=== PATIENT | female | born 1960 | race Caucasian/White ===

== ENCOUNTER → 2017-06-24 | Outpatient (CLI) | payer OTHER ==
[2016-05-02 12:05] VITALS: BP 183/84
[~2017-06-24] MED LIST: FLUO20CA16 PO; INSU100C SQ; INSU100I13 SQ; LEVO50TA5 PO; LIPITOR80 MG PO; LOSARTAN POTASSIUM PO; OXYC-328 PO
--- NOTE | 2017-06-24 16:10 | RAD ---
Left lower extremity venous ultrasound, 06/24/2017 : History: Left leg swelling Duplex evaluation including grayscale, color flow and spectral Doppler analysis was performed. The femoral and popliteal veins show no filling defects to suggest DVT. The visualized calf veins are unremarkable. A mildly prominent lymph node is noted in the left upper thigh. IMPRESSION: There is no sonographic evidence of deep vein thrombosis in the left lower extremity
== END | disposition home or self-care (01) ==
LOC: US 15:05
PROVIDERS: ATTEND Family Medicine
DX: M79.89 Other specified soft tissue disorders (principal)
CPT/HCPCS: 93971

== ENCOUNTER 2020-10-18 15:14 | Emergency (ER) | payer OTHER ==
[~2020-10-18] VITALS: Ht 160 cm; Wt 76.0 kg
[~2020-10-18 15:14] MED LIST changes: -OXYC-328 PO; +OXYC1TAB22 PO
--- NOTE | 2020-10-18 15:46 | EKG ---
[address] [address] Test Date: 2020-10-18 Test Time: 15:38:34 Pat Name: ASH GOMEZ Department: Room: Gender: F Litigation Counsel: DEON : 1960 Requested By: ALEXYS SHETTY Order Number: [id number] Reading MD: Measurements Intervals [place] Rate: 74 P: 0 [place]: 150 QRS: -14 QRSD: 94 T: 114 QT: 400 QTc: 444 Interpretive Statements SINUS RHYTHM LEFTWARD AXIS QRS(T) CONTOUR ABNORMALITY CONSIDER ANTEROSEPTAL MYOCARDIAL DAMAGE CONSISTENT WITH INFERIOR INFARCT PROBABLY OLD ST & T ABNORMALITY, CONSIDER HIGH LATERAL ISCHEMIA OR LEFT VENTRICULAR STRAIN ABNORMAL ECG RI6.02 No previous ECG available for comparison
--- NOTE | 2020-10-18 16:38 | PHYS DOC ---
Past History Past Medical History: CVA, Hypertension, Hypothyroid, Renal Failure, Stroke Past Surgical History: Appendectomy, Cholecystectomy, Hysterectomy Additional Past Surgical Histo: bilateral carpal tunnel release surgery, 7 D&C, toe amputation Smoking: Non-smoker Alcohol Use: None Drug Use: None General Adult EDM: Chief Complaint: HYPERKALEMIA HPI: HPI: Patient is a 60 year old female with a PMH of DM, CAD, CKD, HTN, and HLD who presents from her ophthalmic medical technician's office after being told she had a very high K and high creatinine. She states back in June she was dx with end stage renal dz by her PCP and was supposed to start dialysis. She was supposed to start dialysis at that time, but was not able to get it set up "because of the holidays". She has also not been able to afford her insulin for an extended period of time, so has not been taking any. Today she has no symptoms/complaints. She says recently she has had muscle aches and cramping that are particularly bad in her bilateral LE at night. She denies any SOB, chest pain/palpitations, headaches, or weakness/fatigue. She has no other complaints at this time. Review of Systems: Review of Systems: Constitutional: Denies fever or chills Eyes: Denies redness or eye pain HENT: Denies nasal congestion or sore throat Respiratory: Denies cough or shortness of breath Cardiovascular: Denies chest pain or palpitations GI: Denies abdominal pain, nausea, or vomiting : Denies dysuria or hematuria Musculoskeletal: Denies back pain or joint pain. States she has had ongoing muscle/leg cramps that have been increasing lately. Integument: Denies rash or skin lesions Neurologic: Denies headache, focal weakness or sensory changes Complete systems were reviewed and found to be within normal limits, except as documented in this note. Allergies: Allergies: Allergies Coded Allergies Type Severity Reaction Last Updated Verified propoxyphene Allergy Severe Hives 05/01/16 Yes I S O L A T I O N *CONTACT* Allergy Unknown 05/16/16 Yes Physical Exam: PE: Constitutional: Well developed, well nourished, no acute distress, non-toxic appearance HENT: Normocephalic, atraumatic Eyes: PERRL, EOMI, conjunctiva normal, no discharge Neck: Normal range of motion, no tenderness, supple Lungs & Thorax: No respiratory distress, equal chest rise and fall Heart: RRR no m/r/g Abdomen: Soft, no tenderness Skin: Warm, dry, no erythema, no rash Back: No tenderness, no CVA tenderness Extremities: No tenderness, ROM intact, no edema Neurologic: Alert and oriented X 3, normal motor function, normal sensory function, no focal deficits noted Psychologic: Affect normal, judgment normal EKG: EKG: Normal sinus rhythm at 74 bpm, no acute ST elevation, QRS 94, QT/QTc 400/444. There are some mild old ischemic changes that are consistent with her cardiac hx. [] Radiology/Procedures: Radiology/Procedures: [] Course & Med Decision Making: Course & Med Decision Making Pertinent Labs and Imaging studies reviewed. (See chart for details) Martine Pickett is a 60 female who was sent here by her ophthalmic medical technician for hyperkalemia and increased creatinine due to ESRD. On arrival she is asymptomatic, her EKG did not show any acute ST elevation or signs of hyperkalemia. Her labs revealed a K+ of 6.1, so was treated with insulin, dextrose, and calcium gluconate. Patient requiring transfer for admission for further evaluation and treatment to facility with nephrology consultation. Discussed with Dr. Garcia (hospitalist) who is in agreement with transfer for admission to [facility]. Discussed findings and plan with patient, who acknowledges understanding and agreement. Patient reported some chronic back pain for which she received fentanyl. Dragon Disclaimer: Dragon Disclaimer: This electronic medical record was generated, in whole or in part, using a voice recognition dictation system. Departure Departure: Impression: Primary Impression: Hyperkalemia Disposition: 05 DC/TRF OTHER TYPE INSTITUTI ([facility]- Dr. Garcia accepting.) Condition: GUARDED Referrals: TANJA MAXWELL MD (PCP) Critical Care Time Critical care time was 30 minutes which includes time at bedside, spent in discussion of patient's care with specialists and/or family members, with interpretation of laboratory and/or radiological studies and is exclusive of procedures. ALEXYS SHETTY DO Oct 18, 2020 16:38
[2020-10-18 16:43] LABS: BASO # 0.1 x10^3/uL (0.0-0.2); BASO % 1 % (0-3); EOS # 0.2 x10^3/uL (0.0-0.7); EOS % 2 % (0-3); HEMATOCRIT 34.8 % (36.0-47.0); HEMOGLOBIN 11.3 g/dL (12.0-15.5); LYMPH # 2.1 x10^3/uL (1.0-4.8); LYMPH % 30 % (24-48); MEAN CORPUSCULAR HEMOGLOBIN 28 pg (25-35); MEAN CORPUSCULAR HGB CONC 32 g/dL (31-37); MEAN CORPUSCULAR VOLUME 86 fL (79-100); MONO # 0.3 x10^3/uL (0.0-1.1); MONO % 4 % (0-9); NEUT # 4.5 x10^3uL (1.8-7.7); NEUT % 63 % (31-73); PLATELET COUNT 173 x10^3/uL (140-400); RED BLOOD COUNT 4.07 x10^6/uL (3.50-5.40); RED CELL DISTRIBUTION WIDTH 14.7 % (11.5-14.5); WHITE BLOOD COUNT 7.1 x10^3/uL (4.0-11.0)
[2020-10-18 16:54] LABS: ALBUMIN 2.7 g/dL (3.4-5.0); ALBUMIN/GLOBULIN RATIO 0.5 (1.0-1.7); CALCIUM 8.4 mg/dL (8.5-10.1); CREATININE 3.6 mg/dL (0.6-1.0); GFR 12.9; MAGNESIUM 1.9 mg/dL (1.8-2.4); TOTAL BILIRUBIN 0.4 mg/dL (0.2-1.0); TOTAL PROTEIN 8.3 g/dL (6.4-8.2)
[2020-10-18 16:56] LABS: POTASSIUM 6.1 mmol/L (3.5-5.1)
[2020-10-18] MEDS ORDERED: INSULIN REGULAR 100 UNIT/ML 3ML VIAL. IV ONE (17:00)
[2020-10-18] MEDS ORDERED: DEXTROSE 50% 25 GM / 50ML DISP.SYRIN. IV ONE (17:00)
[2020-10-18] MEDS ORDERED: CALCIUM GLUCONATE 1,000 MG/10 ML VIAL IV ONE (17:00)
[2020-10-18 20:17] VITALS: BP 147/76
== END 2020-10-18 21:04 | disposition short-term general hospital (02) ==
LOC: ER 15:14
DX: E87.5 Hyperkalemia (principal); G89.29 Other chronic pain; I12.9 Hypertensive chronic kidney disease with stage 1 through stage 4 chronic kidney disease, or unspecified chronic kidney disease; N18.9 Chronic kidney disease, unspecified; E03.9 Hypothyroidism, unspecified; Z86.73 Personal history of transient ischemic attack (TIA), and cerebral infarction without residual deficits; Z88.8 Allergy status to other drugs, medicaments and biological substances
CPT/HCPCS: 36415; 80053; 82947; 83735; 85025; 93005; 96374; 96375; 99291; J0610; J1815; J3010

== ENCOUNTER → 2020-12-14 | Outpatient (CLI) | payer OTHER ==
--- NOTE | 2020-12-14 08:44 | RAD ---
US DPLX ARTR EXTREM LOWER BILAT Indication: Reason: PVD / Spl. Instructions: / History: Comparison: None. Procedure: Real-time grayscale, color flow Doppler, and Doppler spectral waveform analysis of the art erial system of the lower extremity is performed. Findings: Right lower extremity: Biphasic waveform throughout the right common femoral, deep femoral, superfici al femoral, popliteal, anterior tibial and dorsalis pedis arteries. Monophasic waveform within the ri ght posterior tibial and peroneal arteries. Moderate atheromatous plaque. No significant velocity kanchan vation. Left lower extremity: Monophasic waveform throughout the left lower extremity. No flow is identified within the left posterior tibial and peroneal arteries. Decreased velocity within the left superficia l femoral artery. Moderate atheromatous plaque. IMPRESSION: 1. No flow is identified within the left posterior tibial and peroneal arteries, may relate to slow flow or occlusion. CT angiogram can further assess as clinically warranted. 2. Monophasic waveforms bilaterally with decreased velocity within the left, may indicate proximal s tenosis. 3. Moderate bilateral atheromatous plaque. Electronically signed by: Augustus Ramsay DO (12/14/2020 8:41 AM) [id number]
--- NOTE | 2020-12-14 08:51 | RAD ---
Exam performed: 3 views left foot and left knee. Clinical indication: pain Date of Service: 12/14/2020 Comparison: None available Findings: AP, lateral and oblique views of the left foot are obtained. Normal alignment is preserved. There is no acute fracture or dislocation. No bony erosion or periosteal reaction is seen. There is mild vascu lar calcification. Soft tissue swelling is noted. AP, lateral and oblique views of the left knee are obtained. Normal alignment of the medial and later al tibiofemoral joint is preserved. There is mild narrowing of the patellofemoral joint . The articu lar margins are smooth. There is no fracture or dislocation. Evidence of calcific loose body or joint effusion is absent. Impression: 1. Soft tissue swelling without underlying bony abnormality in the left foot. 2. Early degenerative changes involving the patellofemoral joint. No acute abnormality seen in the l eft knee. 3. Mild vascular calcification. Electronically signed by: Sheyla Hernandez MD (12/14/2020 8:49 AM) [id number]
== END ==
LOC: US 07:47
PROVIDERS: ATTEND Family Medicine
DX: M17.12 Unilateral primary osteoarthritis, left knee (principal); M19.072 Primary osteoarthritis, left ankle and foot; I73.9 Peripheral vascular disease, unspecified; M79.89 Other specified soft tissue disorders
CPT/HCPCS: 73562; 73630; 93925

== ENCOUNTER → 2021-02-04 | Outpatient (CLI) | payer OTHER ==
[~2021-02-04] MED LIST changes: +IOHEXOL 350 MG/ML 100 ML VIAL. IV ONE
--- NOTE | 2021-02-04 10:22 | RAD ---
EXAM: Abdomen and pelvis CT and lower extremity runoff with intravenous contrast. HISTORY: Peripheral vascular disease. TECHNIQUE: Computed tomographic images of the abdomen and pelvis and bilateral lower extremity were o btained following the administration of intravenous contrast. Multiplanar reformatting was performed. 3-dimensional images were obtained. *One or more of the following individualized dose reduction techniques were utilized for this examina tion: 1. Automated exposure control. 2. Adjustment of the mA and/or kV according to patient size. 3. Use of iterative reconstruction technique. COMPARISON: None. FINDINGS: Evaluation of the lower thorax demonstrates mild cardiomegaly. There is lingular and medial right middle lobe pleural parenchymal scarring. There is left greater than right posterior dependent and basilar atelectasis or scarring. There is no consolidation or suspicious pulmonary nodule. No hepatic lesion is seen. The gallbladder is absent. The common bile duct is dilated, likely due to reservoir effect status post cholecystomy. There is a small proximal duodenal diverticulum. The pancr eas, spleen, adrenal glands and kidneys are unremarkable. There is no appendicitis. There is no bowel obstruction or abnormal bowel wall thickening. There are few sigmoid diverticula. There is gas withi n the bladder likely due to recent catheterization. The bladder wall is thickened due to relative und er distention. The uterus is absent. The ovaries are unremarkable. There is no lymphadenopathy. The abdominal aorta is normal in caliber. There is partially calcified scar plaque involving the aort a and iliac bifurcation. There is also mild partially calcified atherosclerotic plaque involving the aortic branch vessels. There is no evidence of hemodynamically significant stenosis involving the mohsen iac axis, superior mesenteric artery or renal arteries. The inferior mesenteric artery appears occlud ed at its origin. This reconstitutes within its proximal and mid aspect and there is segmental occlus ion of an inferior mesenteric artery branch. There is mild partially calcified atherosclerotic plaque involving the external iliac and common femo ral arteries. This results in less than 50 percent stenosis. There is moderate partially calcified at herosclerotic plaque involving the right superficial femoral artery. This results in approximately 50 percent stenosis. There is severe atherosclerotic plaque involving the right popliteal artery result ing in greater than focal stenosis measuring greater than 70 percent. There is severe partially calci fied atherosclerotic plaque involving the right anterior and posterior tibial and peroneal arteries. This results in short segments of near complete occlusion involving the right peroneal artery. The an terior and posterior tibial arteries are patent at the level of the ankle. There is severe partially calcified atherosclerotic plaque involving the proximal left superficial fe moral artery, resulting in near complete occlusion. This reconstitutes within its mid and distal aspe cts. There is severe atherosclerotic plaque involving the left popliteal and anterior and posterior t ibial and peroneal arteries. The left peroneal artery is segmentally occluded or near nearly occluded . The anterior and posterior tibial arteries are patent. The level of the ankle. IMPRESSION: 1. Moderate partially calcified atherosclerotic plaque involving the right superficial femoral artery with approximately 50 percent segmental stenosis, severe atelectatic plaque involving the right popl iteal artery resulting in a focal segment of greater than 70 percent stenosis and severe partially ca lcified scar plaque involving the anterior and posterior tibial arteries and peroneal artery. There i s near complete complete segmental occlusion of the right peroneal artery and there is greater than 5 0 percent stenosis involving the anterior and posterior tibial arteries. 2. Severe partially calcified atherosclerotic plaque involving the proximal left superficial femoral artery, resulting in near complete occlusion. There is reconstitution of the mid and distal aspects o f this vessel and severe atherosclerotic plaque involving the left popliteal and anterior and posteri or tibial and peroneal arteries. There is near complete segmental occlusion of the left peroneal ulisses ry and there is greater than 50 percent stenosis involving the anterior and posterior tibial arteries . 3. Suspected occlusion at the origin of the inferior mesenteric artery and near complete to complete segmental occlusion of a inferior mesenteric artery branch. The remainder of the abdominal aorta bran ch vessels are widely patent. 4. No acute abdominal or pelvic finding. Electronically signed by: Heidy Wright MD (02/04/2021 10:19 AM) [id number]
== END ==
LOC: CT 07:40
PROVIDERS: ATTEND Family Medicine
DX: I70.203 Unspecified atherosclerosis of native arteries of extremities, bilateral legs (principal)
CPT/HCPCS: 75635; Q9967

== ENCOUNTER 2021-02-26 11:12 | Emergency (ER) | payer OTHER ==
[~2021-02-26] VITALS: Ht 160 cm; Wt 76.0 kg
[~2021-02-26 11:12] MED LIST changes: -IOHEXOL 350 MG/ML 100 ML VIAL. IV ONE
[2021-02-26] MEDS ORDERED: VANCOMYCIN PER PHARMACY MC ONE (11:45)
[2021-02-26] MEDS ORDERED: GENTAMICIN PER PHARMACY MC PRN (11:45)
--- NOTE | 2021-02-26 12:09 | RAD ---
EXAM: Chest, 2 views HISTORY: Fever. COMPARISON: None. FINDINGS: 2 views of the chest are obtained. There is mild diffuse increased interstitial opacity. Th ere is no consolidation, pleural effusion or pneumothorax. There is a prominent cardiac silhouette. T here is a coronary artery stent. There is a right internal jugular dialysis catheter with the tip in the superior cavoatrial junction. IMPRESSION: 1. Mild diffuse interstitial prominence. No consolidated infiltrate is seen. 2. Prominent cardiac silhouette. Electronically signed by: Heidy Wright MD (02/26/2021 12:07 PM) [id number]
[2021-02-26] MEDS ORDERED: ONDANSETRON PF 4 MG/2 ML VIAL. IVP ONE (12:15)
[2021-02-26] MEDS ORDERED: FAMOTIDINE 20 MG/2 ML VIAL IVP ONE (13:00)
[2021-02-26] MEDS ORDERED: METOCLOPRAMIDE HCL 10 MG/2 ML VIAL. IVP ONE (13:00)
[2021-02-26 13:07] LABS: BASO % 0 % (0-3); EOS % 0 % (0-3); HEMATOCRIT 35.5 % (36.0-47.0); HEMOGLOBIN 11.6 g/dL (12.0-15.5); LYMPH # 0.6 x10^3/uL (1.0-4.8); LYMPH % 4 % (24-48); MEAN CORPUSCULAR HEMOGLOBIN 29 pg (25-35); MEAN CORPUSCULAR HGB CONC 33 g/dL (31-37); MEAN CORPUSCULAR VOLUME 89 fL (79-100); MONO # 0.5 x10^3/uL (0.0-1.1); MONO % 4 % (0-9); NEUT # 12.8 x10^3uL (1.8-7.7); NEUT % 92 % (31-73); PLATELET COUNT 171 x10^3/uL (140-400); RED BLOOD COUNT 3.97 x10^6/uL (3.50-5.40); RED CELL DISTRIBUTION WIDTH 13.5 % (11.5-14.5); WHITE BLOOD COUNT 13.9 x10^3/uL (4.0-11.0)
[2021-02-26 13:26] LABS: GFR 11.4; POTASSIUM 4.4 mmol/L (3.5-5.1)
[2021-02-26 13:39] LABS: ALBUMIN 2.8 g/dL (3.4-5.0); ALBUMIN/GLOBULIN RATIO 0.5 (1.0-1.7); MAGNESIUM 1.4 mg/dL (1.8-2.4); PHOSPHORUS 3.9 mg/dL (2.6-4.7); TOTAL PROTEIN 8.4 g/dL (6.4-8.2)
[2021-02-26] MEDS ORDERED: VANCOMYCIN 1 GM in IV NORMAL SALINE 250ML 250 ML IV ONE (14:00)
--- NOTE | 2021-02-26 14:11 | PHYS DOC ---
Past History Past Medical History: CVA, Hypertension, Hypothyroid, Renal Failure, Stroke Additional Past Medical Histor: GASTROPARESIS,NEUROPATHY (KATHY FONSECA DO) Past Surgical History: Appendectomy, Cholecystectomy, Hysterectomy Additional Past Surgical Histo: bilateral carpal tunnel release surgery, 7 D&C, toe amputation (KATHY FONSECA DO) Smoking: Non-smoker Alcohol Use: None Drug Use: None (KATHY FONSECA DO) General Adult EDM: Chief Complaint: NAUSEA/VOMITING/DIARRHEA HPI: HPI: 61-year-old female past medical history significant for esrd (tuThSa), diabetes, hypertension, hyperlipidemia, CVA and CAD, presents to the ED sent from dialysis clinic with concern for infected dialysis catheter. Patient reports she had a fever, T-max of 101 on Thursday and missed dialysis on Thursday. Reports nausea and nonbloody nonbilious vomiting that started on Thursday, associated epigastric burning and tight pain, reports this does not feel like her last cardiac catheterization. Glucose in the 150-200s. Currently complains of chills, nausea and vomiting. (KATHY FONSECA DO) Review of Systems: Review of Systems: Constitutional: Denies known weight gain or orthopnea Eyes: Denies change in visual acuity HENT: Denies nasal congestion or sore throat Respiratory: Denies cough or shortness of breath or hemoptysis Cardiovascular: Denies chest pain described as heaviness/squeezing/or radiating, denies syncope GI: Denies bloody stools or diarrhea : Denies dysuria or vaginal bleeding Musculoskeletal: Denies back pain or joint pain Integument: Denies blistering lesions or diaphoresis Neurologic: Denies headache, neck stiffness, focal weakness or sensory changes Endocrine: Denies polyuria or polydipsia Lymphatic: Denies swollen glands Psychiatric: Denies depression or anxiety (KATHY FONSECA DO) Current Medications: Current Meds: Current Medications Medications (Trade) Dose Ordered Sig/Oren Start Time Stop Time Status Last Admin Dose Admin Famotidine (Pepcid Vial) 20 mg 1X ONCE 02/26/21 13:00 02/26/21 13:03 DC 02/26/21 13:08 20 MG Gentamicin Sulfate 1 each PRN DAILY PRN 02/26/21 11:45 02/26/21 12:58 DC Metoclopramide HCl (Reglan Vial) 10 mg 1X ONCE 02/26/21 13:00 02/26/21 13:03 DC 02/26/21 13:09 10 MG Ondansetron HCl (Zofran) 4 mg 1X ONCE 02/26/21 12:15 02/26/21 12:16 DC 02/26/21 12:25 4 MG Vancomycin HCl (Vanco Per Pharmacy) 1 each 1X ONCE 02/26/21 11:45 02/26/21 11:49 DC Vancomycin HCl 1 gm/Sodium Chloride 250 ml @ 250 mls/hr 1X ONCE 02/26/21 14:00 02/26/21 14:59 (KATHY FONSECA DO) Allergies: Allergies: Allergies Coded Allergies Type Severity Reaction Last Updated Verified propoxyphene Allergy Severe Hives 02/26/21 Yes I S O L A T I O N *CONTACT* Allergy Unknown 02/26/21 Yes (KATHY FONSECA DO) Physical Exam: PE: Constitutional: slightly flu appearing but responding appropriately to questions, afebrile HENT: Normocephalic, atraumatic, dry mucous memrbanes Eyes: EOMI, conjunctiva normal, no discharge. Neck: Normal range of motion, supple, Cardiovascular: S1/2 present, regular rhythm, HR 96, erythematous rash surrounding right upper chest wall tunneled catheter-rash extends up past the clavicle over the palpable right IJ catheter site Lungs & Thorax: Speaking in full sentences, bilateral equal chest rise, no tachypnea or increased work of breathing Abdomen: soft, no tenderness, Skin: Warm, dry, no subcutaneous emphysema Extremities: No tenderness, no cyanosis, Neurologic: Alert -reliable historian, no focal deficits noted, moving all 4 extremities Psychologic: calm, normal affect (KATHY FONSECA DO) Current Patient Data: Labs: Laboratory Tests Test 02/26/21 12:50 White Blood Count 13.9 x10^3/uL (4.0-11.0) H Red Blood Count 3.97 x10^6/uL (3.50-5.40) Hemoglobin 11.6 g/dL (12.0-15.5) L Hematocrit 35.5 % (36.0-47.0) L Mean Corpuscular Volume 89 fL (79-100) Mean Corpuscular Hemoglobin 29 pg (25-35) Mean Corpuscular Hemoglobin Concent 33 g/dL (31-37) Red Cell Distribution Width 13.5 % (11.5-14.5) Platelet Count 171 x10^3/uL (140-400) Neutrophils (%) (Auto) 92 % (31-73) H Lymphocytes (%) (Auto) 4 % (24-48) L Monocytes (%) (Auto) 4 % (0-9) Eosinophils (%) (Auto) 0 % (0-3) Basophils (%) (Auto) 0 % (0-3) Neutrophils # (Auto) 12.8 x10^3uL (1.8-7.7) H Lymphocytes # (Auto) 0.6 x10^3/uL (1.0-4.8) L Monocytes # (Auto) 0.5 x10^3/uL (0.0-1.1) Eosinophils # (Auto) 0.0 x10^3/uL (0.0-0.7) Basophils # (Auto) 0.0 x10^3/uL (0.0-0.2) Sodium Level 135 mmol/L (136-145) L Potassium Level 4.4 mmol/L (3.5-5.1) Chloride Level 97 mmol/L (98-107) L Carbon Dioxide Level 24 mmol/L (21-32) Anion Gap 14 (6-14) Blood Urea Nitrogen 50 mg/dL (7-20) H Creatinine 4.0 mg/dL (0.6-1.0) H Estimated GFR (Cockcroft-Gault) 11.4 BUN/Creatinine Ratio 13 (6-20) Glucose Level 411 mg/dL (70-99) H Lactic Acid Level 2.7 mmol/L (0.4-2.0) H Calcium Level 9.0 mg/dL (8.5-10.1) Phosphorus Level 3.9 mg/dL (2.6-4.7) Magnesium Level 1.4 mg/dL (1.8-2.4) L Total Bilirubin 1.0 mg/dL (0.2-1.0) Aspartate Amino Transferase (AST) 18 U/L (15-37) Alanine Aminotransferase (ALT) 13 U/L (14-59) L Alkaline Phosphatase 179 U/L (46-116) H Troponin I Quantitative 3.063 ng/mL (0-0.055) H Total Protein 8.4 g/dL (6.4-8.2) H Albumin 2.8 g/dL (3.4-5.0) L Albumin/Globulin Ratio 0.5 (1.0-1.7) L Lipase 52 U/L (73-393) L Vital Signs: Vital Signs Date Time Temp Pulse Resp B/P (MAP) Pulse Ox O2 Delivery O2 Flow Rate FiO2 02/26/21 13:12 95 20 189/93 (125) 94 Room Air 02/26/21 11:15 99.2 (KATHY FONSECA DO) EKG: EKG: Sinus rhythm at 96 bpm, no axis deviation, QTC 487, T wave inversion in 2, 3, aVF, V4, V5, V6, questionable ST elevations V1, V2 and V3, no obvious ST segment depressions, patient adamant she has no active chest pain resembling prior CAD/ACS, TWIs and ST segment changes are knew and I consulted cardiology upon review of old ekg (KATHY FONSECA DO) Radiology/Procedures: Radiology/Procedures: IMAGING REPORT Signed PATIENT: ASH GOMEZ ACCOUNT: [id number] : 1960 LOCATION: ER AGE: 61 SEX: F EXAM STATUS: REG ER ORD. PHYSICIAN: KATHY FONSECA DO REASON: FEVER. ABNORMAL APPEARING DIALYSIS PORT PROCEDURE: CHEST PA & LATERAL EXAM: Chest, 2 views HISTORY: Fever. COMPARISON: None. FINDINGS: 2 views of the chest are obtained. There is mild diffuse increased interstitial opacity. There is no consolidation, pleural effusion or pneumothorax. There is a prominent cardiac silhouette. There is a coronary artery stent. There is a right internal jugular dialysis catheter with the tip in the superior cavoatrial junction. IMPRESSION: 1. Mild diffuse interstitial prominence. No consolidated infiltrate is seen. 2. Prominent cardiac silhouette. Electronically signed by: Heidy Becerra MD (02/26/2021 12:07 PM) [id number] DICTATED AND SIGNED BY: HEIDY BECERRA MD DATE: 02/26/21 120 CC: TANJA MAXWELL MD; KATHY FONSECA DO ~MTH0 0 IMAGING REPORT Signed PATIENT: ASH GOMEZ ACCOUNT: [id number] : 1960 LOCATION: ER AGE: 61 SEX: F EXAM STATUS: REG ER ORD. PHYSICIAN: KATHY FONSECA DO REASON: confused PROCEDURE: CT HEAD WO CONTRAST Exam: CT head INDICATION: Confused TECHNIQUE: Sequential axial images through the head were obtained without the administration of IV contrast. Exposure: One or more of the following in the visualized dose reduction techni ques were utilized for this examination: 1. Automated exposure control 2. Adjustment of the MA and/or KV according to patient size 3. Use of iterative of reconstructive technique Comparisons: None FINDINGS: No focal parenchymal lesion or hemorrhage is identified. There is no midline shift or sulcal effacement. No acute vascular territory infarction is identified. Hall-white distinction is preserved. The ventricular system is within normal limits without compression hydrocephalus. The basal cisterns are well maintained. Opacification of the right maxillary sinus. No acute fractures. IMPRESSION: No acute intracranial abnormality. Sinus disease as described above. Electronically signed by: Sera Stringer MD (02/26/2021 6:17 PM) [facility] DICTATED AND SIGNED BY: SERA STRINGER MD DATE: 02/26/211812 CC: TANJA MAXWELL MD; KATHY FONSECA DO ~MTH0 0 (KATHY FONSECA DO) Radiology/Procedures: [address] [id number] IMAGING REPORT Signed PATIENT: ASH GOMEZ ACCOUNT: [id number] : 1960 LOCATION: ER AGE: 61 SEX: F EXAM STATUS: REG ER ORD. PHYSICIAN: KATHY FONSECA DO REASON: confused PROCEDURE: CT HEAD WO CONTRAST Exam: CT head INDICATION: Confused TECHNIQUE: Sequential axial images through the head were obtained without the administration of IV contrast. Exposure: One or more of the following in the visualized dose reduction techniques were utilized for this examination: 1. Automated exposure control 2. Adjustment of the MA and/or KV according to patient size 3. Use of iterative of reconstructive technique Comparisons: None FINDINGS: No focal parenchymal lesion or hemorrhage is identified. There is no midline shift or sulcal effacement. No acute vascular territory infarction is identified. Hall-white distinction is preserved. The ventricular system is within normal limits without compression hyd rocephalus. The basal cisterns are well maintained. Opacification of the right maxillary sinus. No acute fractures. IMPRESSION: No acute intracranial abnormality. Sinus disease as described above. Electronically signed by: Sera Stringer MD (02/26/2021 6:17 PM) [facility] DICTATED AND SIGNED BY: SERA STRINGER MD DATE: 02/26/211812 CC: TANJA MAXWELL MD; KATHY FONSECA DO ~MTH0 0 (LARISA NGUYỄN MD) Heart Score: C/O Chest Pain: No Risk Factors: Risk Factors: DM, Current or recent (<one month) smoker, HTN, HLP, family history of CAD, obesity. Risk Scores: Score 0 - 3: 2.5% MACE over next 6 weeks - Discharge Home Score 4 - 6: 20.3% MACE over next 6 weeks - Admit for Clinical Observation Score 7 - 10: 72.7% MACE over next 6 weeks - Early Invasive Strategies (KATHY FONSECA DO) Course & Med Decision Making: Course & Med Decision Making Pertinent Labs and Imaging studies reviewed. (See chart for details) Presenting complaint of cellulitis of the chest wall concerning for infected hemodialysis tunneled catheter that was placed 3 months ago with associated fever, nausea, vomiting and epigastric pain. After antiemetics, epigastric pain had resolved. Troponin of 3 with EKGs ischemic changes that I I reviewed with Dr. Caroline busch who recommended heparin protocol for NSTEMI if no other contraindications. Heparin ordered and pt was accepted to [facility] for higher level of care including cardiology, vascular surgery and nephrology consulations. Patient in critical condition requiring ICU level care. While awaiting transfer pt with multiple IV attempts (IVs blew, pt very dehydrated). Pts' exam changed - she became confused and delirious. I signed out to Dr. Arellano that gentle IV fluid bolus and CT head was ordered prior to starting heparin given pts' uncontrolled blood pressure. Critical Care: Authorized and Performed by: Kathy Fonseca DO Total critical care time: approximately 90 minutes Due to a high probability of clinically significant, life threatening deterioration, the patient required my highest level of preparedness to intervene emergently and I personally spent this critical care time directly and personally managing the patient. This critical care time included obtaining a history; examining the patient; pulse oximetry; ventilator management if necessary; ordering and review of studies; arranging urgent treatment with deve lopment of a management plan; evaluation of patient's response to treatment; frequent reassessment; discussion with patient/family; and, discussions with other providers. This critical care time was performed to assess and manage the high probability of imminent, life-threatening deterioration that could result in multi-organ failure. It was exclusive of separately billable procedures and treating other patients and teaching time. Please see MDM section and the rest of the note for further information on pa tient assessment and treatment. (KATHY FONSECA DO) Dragon Disclaimer: Dragon Disclaimer: This electronic medical record was generated, in whole or in part, using a voice recognition dictation system. (KATHY FONSECA DO) Departure Departure: Impression: Primary Impression: Cellulitis of chest wall Additional Impressions: NSTEMI (non-ST elevated myocardial infarction) Infection associated with silicone tunneled cuffed peritoneal dialysis catheter Disposition: ADMITTED INPATIENT Admitting Physician: Hiram Garcia (KATHY FONSECA DO) Condition: CRITICAL Referrals: TANJA MAXWELL MD (PCP) KATHY FONSECA DO Feb 26, 2021 14:11 LARISA NGUYỄN MD Feb 26, 2021 19:03
--- NOTE | 2021-02-26 15:14 | EKG ---
[address] [address] Test Date: 2021-02-26 Test Time: 13:58:52 Pat Name: ASH GOMEZ Department: Room: Gender: F [employer] Machine Operator: YEISON : 1960 Requested By: RADHA FONSECA Order Number: [id number] Reading MD: Measurements Intervals [place] Rate: 96 P: 40 OR: 154 QRS: 18 QRSD: 94 T: -81 QT: 380 QTc: 487 Interpretive Statements SINUS RHYTHM QRS(T) CONTOUR ABNORMALITY CONSISTENT WITH ANTEROSEPTAL INFARCT AGE UNDETERMINED CONSISTENT WITH INFERIOR INFARCT PROBABLY OLD ST & T ABNORMALITY, CONSIDER LATERAL ISCHEMIA OR LEFT VENTRICULAR STRAIN ABNORMAL ECG RI6.02 No previous ECG available for comparison
[2021-02-26 15:24] LABS: CLARITY,URINE CLEAR; COLOR,URINE YELLOW
[2021-02-26 15:25] LABS: BILIRUBIN,URINE NEG (NEG); GLUCOSE,URINE 500 mg/dL (NEG)
[2021-02-26 15:27] LABS: BACTERIA,URINE MANY /HPF (0-FEW); NITRITE,URINE NEG (NEG); SQUAMOUS EPITHELIAL CELL,UR OCC /LPF; WBC,URINE RARE /HPF (0-4)
[2021-02-26] MEDS ORDERED: HEPARIN for IV BOLUS 10,000 UNIT/10 ML VIAL. IV ONE (15:30)
[2021-02-26] MEDS ORDERED: HEPARIN 25,000UTS/250ML PREMIX 250 ML IV PRN (15:30)
[2021-02-26] MEDS ORDERED: HEPARIN for IV BOLUS 10,000 UNIT/10 ML VIAL. IV PRN (15:30)
[2021-02-26] MEDS ORDERED: HYDROmorphone PF 1 MG/ML DISP.SYRIN IM ONE (17:00)
[2021-02-26] MEDS ORDERED: ONDANSETRON ODT 4 MG TAB.RAPDIS PO ONE (17:00)
[2021-02-26] MEDS ORDERED: ONDANSETRON ODT 4 MG TAB.RAPDIS ONE (17:02)
[2021-02-26] MEDS ORDERED: IV NORMAL SALINE 500ML 500 ML IV ONE (17:30)
--- NOTE | 2021-02-26 18:20 | RAD ---
Exam: CT head INDICATION: Confused TECHNIQUE: Sequential axial images through the head were obtained without the administration of IV co ntrast. Exposure: One or more of the following in the visualized dose reduction techniques were utilized for this examination: 1. Automated exposure control 2. Adjustment of the MA and/or KV according to patient size 3. Use of iterative of reconstructive technique Comparisons: None FINDINGS: No focal parenchymal lesion or hemorrhage is identified. There is no midline shift or sulcal effaceme nt. No acute vascular territory infarction is identified. Hall-white distinction is preserved. The ventricular system is within normal limits without compression hydrocephalus. The basal cisterns are well maintained. Opacification of the right maxillary sinus. No acute fractures. IMPRESSION: No acute intracranial abnormality. Sinus disease as described above. Electronically signed by: Sera Adorno MD (02/26/2021 6:17 PM) [facility]
[2021-02-26 18:55] VITALS: BP 158/74
== END 2021-02-26 19:59 | disposition admitted as inpatient to this hospital (09) ==
LOC: ER 11:12
DX: T85.71XA Infection and inflammatory reaction due to peritoneal dialysis catheter, initial encounter (principal); I21.4 Non-ST elevation (NSTEMI) myocardial infarction; L03.313 Cellulitis of chest wall; I25.10 Atherosclerotic heart disease of native coronary artery without angina pectoris; E03.9 Hypothyroidism, unspecified; I12.0 Hypertensive chronic kidney disease with stage 5 chronic kidney disease or end stage renal disease; E11.22 Type 2 diabetes mellitus with diabetic chronic kidney disease; N18.6 End stage renal disease; E78.5 Hyperlipidemia, unspecified; Z99.2 Dependence on renal dialysis; Z86.73 Personal history of transient ischemic attack (TIA), and cerebral infarction without residual deficits; Z88.8 Allergy status to other drugs, medicaments and biological substances
CPT/HCPCS: 36415; 70450; 71046; 80053; 81001; 83605; 83690; 83735; 84100; 84484; 85025; 85610; 85730; 87015; 87040; 87077; 87086; 87186; 87205; 93005; 96361; 96365; 96374; 96375; 96376; 99291; 99292; J1644; J2405; J2765; J3370; J3490; J7040; J7050; Q0162